=== PATIENT | female | born 1965 | race Caucasian/White ===

== ENCOUNTER 2019-01-23 21:36 | Emergency (ER) | payer OTHER ==
[~2019-01-23] VITALS: Ht 167.6 cm; Wt 72.6 kg
[2019-01-23 21:40] VITALS: BP 100/61
[2019-01-24 00:18] VITALS: BP 117/60
== END 2019-01-24 00:15 | disposition home or self-care (01) ==
LOC: MED 21:36
DX: S23.9XXA Sprain of unspecified parts of thorax, initial encounter (principal); Z88.5 Allergy status to narcotic agent; X58.XXXA Exposure to other specified factors, initial encounter; Y93.19 Activity, other involving water and watercraft; Y92.89 Other specified places as the place of occurrence of the external cause; Y99.8 Other external cause status
CPT/HCPCS: 93005; 99283